=== PATIENT | male | born 1970 | race African-American/Black ===

== ENCOUNTER 2020-12-12 20:42 | Emergency (ER) | payer BC, MEDICAID ==
[~2020-12-12] VITALS: Ht 175.3 cm; Wt 75.0 kg
[~2020-12-12 20:42] MED LIST: UNK MED
[2020-12-12] MEDS ORDERED: LIDOCAINE HCL/PF 1% 10 MG/ML 5ML VIAL IJ ONE (22:30)
[2020-12-12] MEDS ORDERED: BACITRACIN ZINC OINT UDPKT TOP ONE (22:30)
[2020-12-12] MEDS ORDERED: IBUPROFEN 600MG TABLET PO ONE (22:30)
[2020-12-12] MEDS ORDERED: TETANUS, DIPHTHERIA, PERTUSSIS VAC/PF 0.5ML (>7YR OLD) IM ONE (22:30)
[2020-12-12 22:47] VITALS: BP 129/88
[2020-12-12] MEDS ORDERED: IBUP-2029 MT (23:17)
[2020-12-12] MEDS ORDERED: BO1 TP (23:17)
== END 2020-12-12 23:41 | disposition home or self-care (01) ==
LOC: ER 20:42
DX: S51.811A Laceration without foreign body of right forearm, initial encounter (principal); W25.XXXA Contact with sharp glass, initial encounter; Y93.89 Activity, other specified; Y92.018 Other place in single-family (private) house as the place of occurrence of the external cause
CPT/HCPCS: 12002; 73090; 90471; 90715; 99283; J3490; Z7610

== ENCOUNTER 2020-12-26 23:09 | Emergency (ER) | payer MEDICAID ==
[~2020-12-26] VITALS: Ht 170.2 cm; Wt 57.8 kg
[~2020-12-26 23:09] MED LIST changes: +BO1 TP; +IBUP-2029 MT
[2020-12-26 23:22] VITALS: BP 131/87
== END 2020-12-26 23:51 | disposition home or self-care (01) ==
LOC: ER 23:09
DX: Z48.02 Encounter for removal of sutures (principal)
CPT/HCPCS: 99281; Z7610

== ENCOUNTER 2022-04-27 00:45 | Emergency (ER) | payer MEDICAID ==
[~2022-04-27] VITALS: Ht 170.2 cm; Wt 61.3 kg
[2022-04-27 00:56] VITALS: BP 133/90
[2022-04-27 03:42] LABS: BASOPHILS % 0.6 % (0.0-2.0); EOSINOPHILS % 0.7 % (0.0-5.0); HEMATOCRIT. 38.4 % (42.0-52.0); MEAN CORPUSCULAR HEMOGLOBIN 35.4 pg (28.0-32.0); MEAN CORPUSCULAR VOLUME 97.2 fL (80.0-94.0); MEAN PLATELET VOLUME 7.6 fl (7.4-10.4); MONOCYTES % 10.2 % (2.0-8.0); NEUTROPHILS % 51.5 % (40.0-76.0); PLATELET 278 x1000/uL (130-400); RED BLOOD CELL COUNT 3.95 mill/uL (4.7-6.1); RED CELL DISTRIBUTION WIDTH 13.7 % (11.6-14.6)
[2022-04-27 03:46] LABS: CHLORIDE 108 mEq/L (98-107)
[2022-04-27] MEDS ORDERED: TOPUD PO (06:15)
== END 2022-04-27 06:39 | disposition home or self-care (01) ==
LOC: ER 00:45
DX: R07.89 Other chest pain (principal)
CPT/HCPCS: 36415; 71045; 80053; 83880; 84484; 85025; 85379; 93005; 99285

== ENCOUNTER 2024-03-25 09:43 | Emergency (ER) | payer BC, MEDICAID ==
[~2024-03-25] VITALS: Ht 170.2 cm; Wt 66.0 kg
[~2024-03-25 09:43] MED LIST changes: +TOPUD PO
[2024-03-25 09:47] VITALS: BP 144/107; PULSE 117; TEMP 98.5; O2SAT 98
[2024-03-25 10:01] VITALS: RESP 18
[2024-03-25] MEDS: ACETAMINOPHEN 325MG TABLET PO ONE (10:15)
== END 2024-03-25 11:07 | disposition home or self-care (01) ==
LOC: ER 09:43
DX: S09.8XXA Other specified injuries of head, initial encounter (principal); W01.0XXA Fall on same level from slipping, tripping and stumbling without subsequent striking against object, initial encounter; Y93.89 Activity, other specified; Y92.89 Other specified places as the place of occurrence of the external cause; Y99.8 Other external cause status
CPT/HCPCS: 99284

== ENCOUNTER 2025-06-05 22:18 | Emergency (ER) | payer MEDICAID ==
[~2025-06-05] VITALS: Ht 172.7 cm; Wt 66.0 kg
[~2025-06-05 22:18] MED LIST changes: +IBUP-1455 MT; -IBUP-2029 MT
[2025-06-05 22:20] VITALS: TEMP 36.3; O2SAT 98
[2025-06-05] MEDS: TETANUS, DIPHTHERIA, PERTUSSIS VAC/PF 0.5ML (>10YR OLD) IM ONE (23:12)
[2025-06-05] MEDS ORDERED: AMOX1TAB16 MT (23:19)
[2025-06-05 23:37] VITALS: BP 132/79; PULSE 87; RESP 16; O2SAT 98
== END 2025-06-05 23:38 | disposition home or self-care (01) ==
LOC: ER 22:18
DX: S51.812A Laceration without foreign body of left forearm, initial encounter (principal); Y04.1XXA Assault by human bite, initial encounter; Y93.89 Activity, other specified; Y92.89 Other specified places as the place of occurrence of the external cause; Y99.8 Other external cause status
CPT/HCPCS: 90715; 90471; 99283; Z7610 ×2